=== PATIENT | female | born 1965 | race Caucasian/White ===

== ENCOUNTER 2025-11-11 17:24 | Emergency (ER) | payer MEDICAID, SELFPAY ==
[2025-11-11 18:05] VITALS: BP 137/83; PULSE 105; RESP 17; TEMP 36.8; O2SAT 96
--- NOTE | 2025-11-11 18:32 | XR_ITS ---
Examination: CT soft tissue neck, without contrast. 2-D sagittal reconstructions. 2-D coronal reconstructions. 3-D reconstructions. Date and time of exam: November 11, 2025, 1849 hours INDICATIONS: Patient stakes pill stuck in the throat CTDI: vol (mGy): 13.1 DLP: (mGycm): 355 Technique: Multiple 1.25 mm axial sections of the soft tissue neck without intravenous contrast have been obtained. 2-D sagittal and coronal reconstructions have been obtained. 3-D reconstructions have been obtained. Low dose protocols were performed. One or more of the following dose reduction techniques were used; automated exposure control, adjustment of the mA and/or KV according to patient size, use of iterative reconstruction technique. Findings: Symmetrical nasopharynx oropharynx Normal larynx Symmetrical thyroid lobes Positive for opaque foreign body in the cervical esophagus, axial image 56, sagittal image 36 measuring 6 mm in dimension Normal epiglottis IMPRESSION: Positive for 6 mm opaque foreign body in the cervical esophagus consistent with the patient's history of a pill stuck in the throat Recommend endoscopy follow-up
--- NOTE | 2025-11-11 18:32 | PD.EDRME ---
Rapid Medical Screening Exam RME Arrival date/time: 11/11/25 17:24 60-year-old female reports with complaints of a pill stuck in her throat Chief Complaint: General Adult/Misc Complain Time Seen by Provider: 11/11/25 18:02 Vital signs: Vital Signs Temperature 98.3 F 11/11/25 18:05 Pulse Rate 105 H 11/11/25 18:05 Respiratory Rate 17 11/11/25 18:05 Blood Pressure 137/83 H 11/11/25 18:05 Pulse Oximetry (%) 96 11/11/25 18:05 Oxygen Delivery Method Room Air 11/11/25 18:05 Exam: -* Clinical Impression: -
--- NOTE | 2025-11-11 19:39 | PD.EDRME ---
Rapid Medical Screening Exam RME Arrival date/time: 11/11/25 17:24 11/11/25 17:24 60-year-old female reports with complaints of a pill stuck in her throat Chief Complaint: General Adult/Misc Complain Time Seen by Provider: 11/11/25 18:02 Vital signs: Vital Signs Temperature 98.3 F 11/11/25 18:05 Pulse Rate 105 H 11/11/25 18:05 Respiratory Rate 17 11/11/25 18:05 Blood Pressure 137/83 H 11/11/25 18:05 Pulse Oximetry (%) 96 11/11/25 18:05 Oxygen Delivery Method Room Air 11/11/25 18:05 RME Narrative: 11/11/25 17:24 60-year-old female reports with complaints of a pill stuck in her throat Exam: -* Clinical Impression: -
--- NOTE | 2025-11-11 20:42 | PD.EDDENTL ---
ED Dental RME/HPI General Chief complaint: General Adult/Misc Complain Stated complaint: FISH OIL CAP CAUGHT IN THROAT Time Seen by Provider: 11/11/25 18:02 Arrival date/time: 11/11/25 17:24 RME / HPI RME / HPI Narrative: 11/11/25 17:24 60-year-old female reports with complaints of a pill stuck in her throat See MDM for Dr. Perez's HPI documentation. Related Data Previous Rx's ?Medication ?Instructions ?Recorded dicyclomine 20 mg tablet 20 mg PO QID PRN abdominal pain 01/03/20 #30 tabs metronidazole 500 mg tablet 500 mg PO TID #21 tabs 01/03/20 (Flagyl) ondansetron HCl 4 mg tablet 4 mg PO QID PRN nausea and 01/03/20 (Zofran) vomiting #14 tabs Allergies Allergy/AdvReac Type Severity Reaction Status Date / Time ciprofloxacin (From Cipro) Allergy Difficulty Verified 11/11/25 17:27 Breathing erythromycin base Allergy Verified 11/11/25 17:27 lidocaine Allergy Fainting Verified 11/11/25 17:27 naproxen Allergy Verified 11/11/25 17:27 Review of Systems Review of Systems Systems Reviewed: All systems reviewed, normal except as documented ED Exam Narrative Physical exam: See MDM for Dr. Perez's physical exam documentation. Course Quality Measures none Orders Category Date Time Status Bedside COVID-19 Antigen Test NOW Care 11/11/25 20:38 Active NPO after Midnight ONCE Care 11/11/25 20:38 Active Saline [Insert IV] NOW Care 11/11/25 20:38 Active Consult to Gastroenterology Stat Cons 11/11/25 20:38 Ordered Diet NPO after Midnight Diet 11/12/25 00:[address] soft tissue neck wo con Stat Exams 11/11/25 18:32 Completed Bilirubin,Direct Stat Lab 11/11/25 20:39 Ordered CBC Stat Lab 11/11/25 20:39 Ordered CMP [Comprehensive Metabolic Panel] Stat Lab 11/11/25 20:39 Ordered Hemoglobin A1C [Glycohemoglobin w (eAG)] Stat Lab 11/11/25 20:39 Ordered Magnesium Stat Lab 11/11/25 20:39 Ordered UA, C/S IF [Urinalysis, C/S if Indicated] Stat Lab 11/11/25 20:39 Ordered Vital Signs Vital signs: Vital Signs Temperature 98.3 F 11/11/25 18:05 Pulse Rate 105 H 11/11/25 18:05 Respiratory Rate 17 11/11/25 18:05 Blood Pressure 137/83 H 11/11/25 18:05 Pulse Oximetry (%) 96 11/11/25 18:05 Oxygen Delivery Method Room Air 11/11/25 18:05 Dental / Oral MDM Narrative MDM Narrative:: This section includes all my notes and documentations, including HPI, PE, and ED course. Román Perez MD HPI: 60-year-old female here after getting a pill stuck in her throat. ROS: All negative except as documented in HPI. Physical Exam: General: Alert and oriented. No acute distress when remaining still. Eyes: Conjunctivae and lids clear. ENT: No nasal congestion. Neck: Supple. Heart: RRR. Lungs: No respiratory distress. Good air movement. No rhonchi, wheezing, rales. Abdomen: Soft and nontender. Normal bowel sounds. No distension. No rebound or guarding. Back: No CVA tenderness. Skin: Warm and dry. Neuro: Alert and oriented X 3. I reviewed all diagnostic test results. My interpretation of the EKG is My interpretation of the chest x-ray is My review of the CT report is Blood tests and urine tests At this point, diagnoses include Treatment here included Significant improvement I discussed the case with our technology instructor, Dr. Bryan. About the presentation and exam and diagnostics and treatments here. And need of further care in the hospital. Will accept the patient. Román Perez MD Patient data External records reviewed:: [facility] previous records Clinical information provided by:: patient Social determinants that could affect healthcare access:: none Discharge Plan Prescriptions/Referrals Prescriptions/Med Rec: No Action ondansetron HCl [Zofran] 4 mg tablet 4 mg PO QID PRN (Reason: nausea and vomiting) Qty: 14 0RF metronidazole [Flagyl] 500 mg tablet 500 mg PO TID Qty: 21 0RF dicyclomine 20 mg tablet 20 mg PO QID PRN (Reason: abdominal pain) Qty: 30 0RF Referrals: No Primary/Family,Physician [Primary Care Provider] - In 1 week Patient/Caregiver Discharge Instructions Print Language: Martiniquais
--- NOTE | 2025-11-11 20:44 | PC.NURSE ---
DR. KHALIL AND STAFF CALLED PATIENT IN THE LOBBY, NO ANSWER RECEIVED. THIS NURSE CALLED PATIENT ON LISTED NUMBER IN CHART. PATIENT STATES THAT SHE WENT HOME DUE TO PILL GOING DOWN WHEN SHE WAS AT [facility].
--- NOTE | 2025-11-11 20:46 | PD.EDADDENDU ---
Emergency Room Addendum Addendum Narrative: When I looked for the patient to start my evaluation, I was told the patient eloped. Román Perez MD
== END 2025-11-11 20:46 | disposition left against medical advice (07) ==
PROVIDERS: Emergency Provider Emergency Medicine
DX: T17.298A Other foreign object in pharynx causing other injury, initial encounter (principal); W44.8XXA Other foreign body entering into or through a natural orifice, initial encounter; Z53.29 Procedure and treatment not carried out because of patient's decision for other reasons
CPT/HCPCS: 70490; 80053; 81001; 82248; 83036; 83735; 85025; 99282